=== PATIENT | male | born 1955 | race Two or more races ===

== ENCOUNTER 2017-10-07 23:00 | Emergency (ER) | payer SELFPAY ==
[~2017-10-07] VITALS: Ht 177.8 cm; Wt 90.7 kg
--- NOTE | 2017-10-07 23:09 | NUR ---
PT PRESENTED TO THE ER WITH A C/O LEFT HAND MIDDLE FINGER DOG BITE. PT STATED THAT HE WAS BITTEN EARLIER THIS EVENING. PT STATED THAT HE REC'D A TETANUS 1 YEAR AGO.
[2017-10-07 23:21] VITALS: BP 158/98
[2017-10-07] MEDS ORDERED: DOXYCYCLINE HYCLATE (100 MG) 100 MG TABLET PO ONE (23:30)
== END 2017-10-07 23:22 | disposition home or self-care (01) ==
LOC: ER 23:03
DX: S60.572A Other superficial bite of hand of left hand, initial encounter (principal); S00.472A Other superficial bite of left ear, initial encounter; W54.0XXA Bitten by dog, initial encounter; Y93.89 Activity, other specified; Y92.89 Other specified places as the place of occurrence of the external cause; Y99.8 Other external cause status
CPT/HCPCS: 99283; A4606; A6402; Z7610